=== PATIENT | male | born 1955 | race Caucasian/White ===

== ENCOUNTER → 2019-03-10 | Outpatient (CLI) | payer BC, MEDICARE ==
[~2019-03-10] MED LIST: REGADENOSON 0.4 MG/5 ML SYR IV ONE
--- NOTE | 2019-03-16 16:48 | Myoview Stress Test ---
DATE OF STUDY: 03/14/2019 09:30:00 Stress Test - Treadmill ONLY PROCEDURE TITLE: Rest/stress single isotope SPECT imaging with pharmacologic stress and gated SPECT imaging. INDICATION: Atrial fibrillation. PROCEDURE IN DETAIL: Pharmacologic stress testing was performed with regadenoson per protocol. The heart rate was 54 beats per minute at rest and increased to 86 beats per minute during the regadenoson infusion. The rest blood pressure was 121/81 mmHg and decreased to 102/60 mmHg, which is a normal response. The resting electrocardiogram demonstrated atrial fibrillation with slow ventricular response. There were no ST-segment changes suggestive of myocardial ischemia. Myocardial perfusion imaging was performed at rest following the injection of 11 mCi of tetrofosmin. At peak pharmacologic effect, the patient was injected with 33 mCi of tetrofosmin. Gated post-stress tomographic imaging was performed. FINDINGS: The overall quality of the study is fair. Left ventricle was noted to be normal size on the rest and stress studies. SPECT images demonstrate homogeneous tracer distribution throughout the myocardium. Gated SPECT imaging reveals normal myocardial thickening and wall motion. The left ventricular ejection fraction was calculated to be greater than 70%. IMPRESSION: Myocardial perfusion imaging is normal. Overall, left ventricular systolic function was normal without regional wall motion abnormalities. Rachele Edmondson MD ABS/MODL /[id number]
== END ==
LOC: NM 09:09
PROVIDERS: ATTEND Internal Medicine Cardiovascular Disease
DX: R07.9 Chest pain, unspecified (principal)
CPT/HCPCS: 78452; 93306; A9502; J2785; 93017

== ENCOUNTER → 2019-04-11 | Outpatient (CLI) | payer BC ==
[~2019-04-11] MED LIST changes: +IOPAMIDOL 370 MG/ML 200 ML INFUS..BTL INJ ONE; -REGADENOSON 0.4 MG/5 ML SYR IV ONE; +SODIUM CHLORIDE 0.9% 100 ML 100 ML ONE; +SODIUM CHLORIDE 0.9% 250ML 250 ML ONE; +SODIUM CHLORIDE 0.9% 500ML 500 ML ONE
[2019-04-11 10:42] LABS: CREATININE, SERUM 1.34 mg/dL (0.72-1.25)
--- NOTE | 2019-04-11 13:01 | Diagnostic Imaging Report ---
EXAM: CT Angiogram Chest WITH contrast INDICATION: Thoracic aortic aneurysm. COMPARISON: None. TECHNIQUE: Chest was scanned utilizing a multidetector helical scanner from the lung apex through the level of the adrenal glands after administration of IV contrast in arterial phase. Coronal and sagittal reformations were obtained. CT Angiogram protocol was performed. 3D reconstruction was performed and viewed on dedicated workstation. Dose modulation, iterative reconstruction, and/or weight based adjustment of the mA/kV was utilized to reduce the radiation dose to as low as reasonably achievable. IV CONTRAST: 100 mL of Isovue 370 RADIATION DOSE: Total DLP: 590.8 mGy*cm COMPLICATIONS: None FINDINGS: VASCULAR FINDINGS: Thoracic aorta: Sinus of Valsalva: 4.3 cm Ascending Aorta at level of PA: 5.1 x 4.8 cm Mid Arch: 3.1 x 3.1 cm Proximal Descendin.1 x 3.2cm Mid Descendin.8 x 2.8 cm Distal Descendin.9 x 2.8 cm Aortic hiatus: 2.9 x 2.8 cm. No evidence of aortic dissection. No significant atherosclerotic changes within the thoracic aorta. The main pulmonary artery is not enlarged. No evidence of central pulmonary embolism. LINES/ TUBES: None. LUNGS AND AIRWAYS: The central airways are patent. No focal consolidation. Mild bibasilar dependent subsegmental atelectasis. Lingular calcified granuloma. PLEURA: The pleural spaces are clear. HEART AND MEDIASTINUM: 9 mm right thyroid lobe hypodense lesion. No cervical, axillary, subpectoral, or mediastinal lymphadenopathy. Nonenlarged calcified left hilar lymph nodes. Multichamber cardiomegaly. Atherosclerotic calcifications involve the coronary arteries. No pericardial effusion. No central pulmonary embolism. UPPER ABDOMEN: Limited early arterial phase images of the upper abdomen demonstrate no focal abnormality of the partially visualized liver, spleen, pancreas, or upper kidneys. BONES/SOFT TISSUES: No acute osseous abnormality. No suspicious lytic or blastic lesion. IMPRESSION: Ascending thoracic aortic aneurysm measuring up to 5.1 x 4.8 cm. No dissection. 9mm right thyroid cystic lesion is likely clinically insignificant. No follow-up imaging is warranted. Signed by: Marc Hector MD on 04/11/2019 12:58 PM
== END ==
LOC: CT 09:31
PROVIDERS: ATTEND Internal Medicine Cardiovascular Disease
DX: I71.2 Thoracic aortic aneurysm, without rupture (principal); I48.0 Paroxysmal atrial fibrillation
CPT/HCPCS: 36415; 71275; 82565; 84520; 96360; J7040; J7050; Q9967